=== PATIENT | male | born 1980 | race Hispanic/Latino ===

== ENCOUNTER 2019-01-26 20:40 | Emergency (ER) | payer MEDICARE ==
--- NOTE | 2019-01-26 20:56 | Emergency Department Report ---
Blank Doc - Documentation Documentation: This is a 38-year-old male that presents with abdominal pain and bilateral feet pain. Denies any n/v. Denies any other symptoms. This initial assessment/diagnostic orders/clinical plan/treatment(s) is/are subject to change based on patient's health status, clinical progression and re- assessment by fellow clinical providers in the ED. Further treatment and workup at subsequent clinical providers discretion. Patient/guardians urged not to elope from the ED as their condition may be serious if not clinically assessed and managed. Initial orders include: 1- Patient sent to [facility] for further evaluation and treatment 2- labs
[2019-01-26 21:33] LABS: Basophils % (Auto) 0.4 % (0.0-1.8); Eosinophils # (Auto) 0.2 K/mm3 (0.0-0.4); Eosinophils % (Auto) 1.6 % (0.0-4.3); Hematocrit 41.3 % (35.5-45.6); Hemoglobin 14.1 gm/dl (11.8-15.2); Lymphocytes # (Auto) 2.6 K/mm3 (1.2-5.4); Lymphocytes % (Auto) 26.3 % (13.4-35.0); Mean Corpuscular HGB Conc 34 % (32-34); Mean Corpuscular Volume 83 fl (84-94); Monocytes # (Auto) 0.4 K/mm3 (0.0-0.8); Monocytes % (Auto) 3.7 % (0.0-7.3); Platelet Count 292 K/mm3 (140-440); Red Blood Count 5.01 M/mm3 (3.65-5.03); Red Cell Distribution Width 14.8 % (13.2-15.2)
[2019-01-26 21:53] LABS: Alanine Aminotransferase 21 units/L (7-56); Albumin 3.6 g/dL (3.9-5); BUN/Creatinine Ratio 9; Blood Urea Nitrogen 6 mg/dL (9-20); Calcium 8.4 mg/dL (8.4-10.2); Hemolysis Index 5
[2019-01-26 21:55] LABS: Bilirubin,Direct < 0.2 mg/dL (0-0.2)
--- NOTE | 2019-01-26 22:59 | Emergency Department Report ---
ED Abdominal Pain HPI - General Chief Complaint: Abdominal Pain Stated Complaint: LEG/ABD PAIN Time Seen by Provider: 01/26/19 20:54 Source: patient Mode of arrival: Ambulatory Limitations: No Limitations - History of Present Illness Initial Comments: 38-year-old male presents to the ED with report of diffuse abdominal pain since last night. Patient denies fever, nausea, vomiting, diarrhea, constipation. Patient also reports bilateral foot pain. Patient is wearing [email or web address] boots, states he walks around a lot, and his boots hurt his feet. Patient states abdominal pain is currently resolved. Patient laying on stretcher comfortably. States he just needed a place to rest. MD Complaint: abdominal pain -: Last night Location: diffuse Radiation: none Migration to: no migration Severity: mild Severity scale (0 -10): 4 Consistency: now resolved Improves With: nothing Worsens With: nothing Associated Symptoms: denies other symptoms - Related Data Previous Rx's Medication Instructions Recorded Last Taken Type Dicyclomine [Bentyl] 20 mg PO QID PRN #20 tablet 01/26/19 Unknown Rx Allergies Allergy/AdvReac Type Severity Reaction Status Date / Time No Known Allergies Allergy Unverified 01/26/19 20:58 ED Review of Systems ROS: Stated complaint: LEG/ABD PAIN Other details as noted in HPI Comment: All other systems reviewed and negative Constitutional: denies: chills, fever Respiratory: denies: shortness of breath Cardiovascular: denies: chest pain Gastrointestinal: abdominal pain. denies: nausea, vomiting, diarrhea, constipation Musculoskeletal: other (reports pain to bilateral feet) ED Past Medical Hx - Past Medical History Previous Medical History?: No - Surgical History Past Surgical History?: Yes Additional Surgical History: Leg Surgery - Social History Smoking Status: Current Every Day Smoker Substance Use Type: Alcohol - Medications Home Medications: Home Medications Medication Instructions Recorded Confirmed Last Taken Type Dicyclomine [Bentyl] 20 mg PO QID PRN #20 tablet 01/26/19 Unknown Rx ED Physical Exam - General Limitations: No Limitations General appearance: other (appears unkempt) - Head Head exam: Present: atraumatic, normocephalic - Eye Eye exam: Present: normal appearance - ENT ENT exam: Present: mucous membranes moist - Neck Neck exam: Present: normal inspection - Respiratory Respiratory exam: Present: normal lung sounds bilaterally. Absent: respiratory distress - Cardiovascular Cardiovascular Exam: Present: regular rate, normal rhythm - GI/Abdominal GI/Abdominal exam: Present: soft. Absent: distended, tenderness, guarding, rebound - Extremities Exam Extremities exam: Present: normal inspection - Neurological Exam Neurological exam: Present: alert, oriented X3 - Psychiatric Psychiatric exam: Present: normal affect, normal mood - Skin Skin exam: Present: warm, dry, intact, normal color ED Course Vital Signs 01/26/19 01/26/19 01/26/19 20:48 20:54 23:46 Temperature 97.6 F 97.6 F Pulse Rate 100 H 92 H 80 Respiratory 18 18 16 Rate Blood Pressure 124/90 124/90 Blood Pressure 122/78 [Left] O2 Sat by Pulse 96 99 100 Oximetry ED Medical Decision Making - Lab Data Result diagrams: 01/26/19 21:20 01/26/19 21:20 - Medical Decision Making Benign abdomen. Vitals normal. Labs normal. Pt reports resolution of pain. Return precautions given, outpatient follow-up advised. - Differential Diagnosis gastritis, gastroenteritis, pancreatitis Critical care attestation.: If time is entered above; I have spent that time in minutes in the direct care of this critically ill patient, excluding procedure time. ED Disposition Clinical Impression: Abdominal pain Disposition: DC-01 TO HOME OR SELFCARE Is pt being admited?: No Condition: Stable Instructions: Abdominal Pain (ED) Prescriptions: Dicyclomine [Bentyl] 20 mg PO QID PRN #20 tablet PRN Reason: abdominal pain Referrals: [facility] [Provider Group] - 3-5 Days Time of Disposition: 22:59
[2019-01-26 23:55] VITALS: BP 122/78
== END 2019-01-26 23:46 | disposition home or self-care (01) ==
LOC: ED 20:40
DX: R10.84 Generalized abdominal pain (principal); M79.672 Pain in left foot; M79.671 Pain in right foot; F17.200 Nicotine dependence, unspecified, uncomplicated
CPT/HCPCS: 36415; 80048; 80076; 83690; 85025

== ENCOUNTER 2019-01-27 22:50 | Emergency (ER) | payer MEDICARE ==
[2019-01-28 06:54] VITALS: BP 108/66
--- NOTE | 2019-01-28 07:16 | Emergency Department Report ---
ED General Adult HPI - General Chief complaint: Pain General Stated complaint: PAIN/CANT SLEEP Time Seen by Provider: 01/28/19 06:53 Source: patient Mode of arrival: Ambulatory Limitations: No Limitations - History of Present Illness Initial comments: 38-year-old male presents to the emergency room for the second day in a row for generalized pain and can't sleep. Upon provider insulin patient's room patient is sleeping comfortably in a recliner. He was sent home yesterday with Bentyl 20 mg 4 times a day when necessary. -: days(s) (2) Severity scale (0 -10): 10 Consistency: intermittent - Related Data Previous Rx's Medication Instructions Recorded Last Taken Type Dicyclomine [Bentyl] 20 mg PO QID PRN #20 tablet 01/26/19 Unknown Rx Allergies Allergy/AdvReac Type Severity Reaction Status Date / Time No Known Allergies Allergy Unverified 01/26/19 20:58 ED Review of Systems ROS: Stated complaint: PAIN/CANT SLEEP Other details as noted in HPI Comment: All other systems reviewed and negative ED Past Medical Hx - Past Medical History Previous Medical History?: No - Surgical History Past Surgical History?: Yes Additional Surgical History: Leg Surgery - Social History Smoking Status: Current Every Day Smoker Substance Use Type: None - Medications Home Medications: Home Medications Medication Instructions Recorded Confirmed Last Taken Type Dicyclomine [Bentyl] 20 mg PO QID PRN #20 tablet 01/26/19 Unknown Rx ED Physical Exam - General Limitations: No Limitations General appearance: alert, in no apparent distress, other (very unkept) - Head Head exam: Present: atraumatic, normocephalic - Eye Eye exam: Present: normal appearance - ENT ENT exam: Present: mucous membranes moist - Cardiovascular Cardiovascular Exam: Present: regular rate, normal rhythm. Absent: systolic murmur, diastolic murmur, rubs, gallop - Extremities Exam Extremities exam: Present: normal inspection - Back Exam Back exam: Present: normal inspection - Neurological Exam Neurological exam: Present: alert, oriented X3 - Psychiatric Psychiatric exam: Present: normal affect, normal mood - Skin Skin exam: Present: warm, dry, intact, normal color. Absent: rash ED Course Vital Signs 01/27/19 01/28/19 23:47 06:53 Temperature 98 F 98.2 F Pulse Rate 104 H 84 Respiratory 18 20 Rate Blood Pressure 129/83 Blood Pressure 108/66 [Left] O2 Sat by Pulse 97 97 Oximetry Critical care attestation.: If time is entered above; I have spent that time in minutes in the direct care of this critically ill patient, excluding procedure time. ED Disposition Clinical Impression: Generalized pain Disposition: DC-01 TO HOME OR SELFCARE Is pt being admited?: No Does the pt Need Aspirin: No Condition: Stable Additional Instructions: Follow-up with a primary care provider I have listed one below for your convenience. Referrals: YUVAL BEATTY MD [Primary Care Provider] - 3-5 Days
== END 2019-01-28 07:29 | disposition home or self-care (01) ==
LOC: ED 22:50
DX: R52 Pain, unspecified (principal); F17.200 Nicotine dependence, unspecified, uncomplicated; Z98.890 Other specified postprocedural states

== ENCOUNTER 2019-01-28 16:38 | Emergency (ER) | payer MEDICARE ==
[2019-01-28 17:13] VITALS: BP 136/89
--- NOTE | 2019-01-28 19:05 | Emergency Department Report ---
ED General Adult HPI - General Chief complaint: Extremity Injury, Lower Stated complaint: FACE PAIN Time Seen by Provider: 01/28/19 18:55 Source: patient, RN notes reviewed, old records reviewed Mode of arrival: Ambulatory Limitations: No Limitations - History of Present Illness Initial comments: This is a 38-year-old gentleman who is not known to this provider previously, who presents to the emergency room today with complaint of nontraumatic plantar foot pain, most prominent on the left side. He reports the symptoms have started today. He is requesting an ointment. He denies other complaints, with the exception of headache. He is not able to describe exacerbating or relieving factors. Of note, patient was seen earlier on this morning, for other nonspecific symptoms. This is the patient's fourth visit to this department in the past few days. He was also seen by some of my colleagues for other multiple nonspecific complaints. He's had thorough evaluations, and thus far, has not had an objectively demonstrated emergent medical condition. The patient has made no complaints of homicidality or suicidality, nor does he appear to be psychotic. The patient appears to be undomiciled. -: This morning Location: left, right, lower extremity Consistency: other Improves with: other Worsens with: other - Related Data Previous Rx's Medication Instructions Recorded Last Taken Type Dicyclomine [Bentyl] 20 mg PO QID PRN #20 tablet 01/26/19 Unknown Rx Allergies Allergy/AdvReac Type Severity Reaction Status Date / Time No Known Allergies Allergy Verified 01/28/19 17:07 ED Review of Systems ROS: Stated complaint: FACE PAIN Other details as noted in HPI Constitutional: denies: fever Eyes: denies: eye discharge ENT: denies: congestion Respiratory: denies: cough Gastrointestinal: denies: abdominal pain Musculoskeletal: myalgia Neurological: headache ED Past Medical Hx - Past Medical History Previous Medical History?: No - Surgical History Additional Surgical History: Leg Surgery - Social History Smoking Status: Current Every Day Smoker Substance Use Type: None - Medications Home Medications: Home Medications Medication Instructions Recorded Confirmed Last Taken Type Dicyclomine [Bentyl] 20 mg PO QID PRN #20 tablet 01/26/19 Unknown Rx ED Physical Exam - General Limitations: No Limitations General appearance: alert, in no apparent distress - Head Head exam: Present: atraumatic, normocephalic - Eye Eye exam: Present: normal appearance, EOMI. Absent: nystagmus - ENT ENT exam: Present: normal exam, normal orophraynx, mucous membranes moist, normal external ear exam - Neck Neck exam: Present: normal inspection, full ROM. Absent: tenderness, meningismus - Respiratory Respiratory exam: Present: normal lung sounds bilaterally. Absent: respiratory distress - Cardiovascular Cardiovascular Exam: Present: regular rate, normal rhythm, normal heart sounds. Absent: bradycardia, tachycardia, irregular rhythm, systolic murmur, diastolic murmur, rubs, gallop - GI/Abdominal GI/Abdominal exam: Present: soft. Absent: distended, tenderness, guarding, rebound, rigid - Rectal Rectal exam: Present: deferred - Extremities Exam Extremities exam: Present: full ROM, other (2+ pulses noted in the bilateral upper, lower extremities. Compartments soft. No long bony tenderness. The pelvis is stable.). Absent: normal inspection (there is no redness, pus or streaking on the bilateral lower feet.The patient appears to have elongated to enails. The left foot appears to have pruney skin without evidence of active infection. No obvious fungal lesions are noted.) - Back Exam Back exam: Present: normal inspection, full ROM. Absent: tenderness, CVA tenderness (R), paraspinal tenderness, vertebral tenderness - Neurological Exam Neurological exam: Present: alert, other (there is no facial droop. The tongue is midline. Extraocular movements are intact bilaterally. There is 5 out of 5 strength in 4 extremities. Sensation is intact to light touch.). Absent: motor sensory deficit - Psychiatric Psychiatric exam: Present: flat affect - Skin Skin exam: Present: warm, dry, intact, normal color. Absent: rash ED Course Vital Signs 01/28/19 17:12 Temperature 98.2 F Pulse Rate 88 Respiratory 18 Rate Blood Pressure 136/89 O2 Sat by Pulse 98 Oximetry - Reevaluation(s) Reevaluation #1: 01/28/19 19:12 Differential diagnosis, including without Limited to: Homelessness, nonspecific plantar foot pain, water immersion wrinkling Assessment and plan: 38-year-old gentleman with foot pain, that appears to be chronic, he has been ambulatory on multiple evaluations, with bilateral foot pain, greater on the left foot, likely secondary to water immersion wrinkling. No evidence of active infectious process at this time. Physical examination otherwise unremarkable. The patient does not appear to have an emergent medical condition at this time. He is counseled to engage in appropriate foot hygiene, including washing with soap and water at least once per day, cutting his nails on his feet on a regular basis, and he will be provided with dry socks. Unfortunately, we do not have the ability to provide dry footwear. The patient is medically suitable for discharge at this point in time. Critical care attestation.: If time is entered above; I have spent that time in minutes in the direct care of this critically ill patient, excluding procedure time. ED Disposition Clinical Impression: Foot pain Disposition: DC-01 TO HOME OR SELFCARE Is pt being admited?: No Does the pt Need Aspirin: No Condition: Stable Additional Instructions: I recommend that the patient wash feet with gentle soap and water at least once every 24 hours. Patient should cut nails on the toes on a regular basis to avoid overgrowth. Used to dry socks that were provided to the patient, and obtain dry footwear, which is wide-based, and allows plenty breathing room. Take acetaminophen, or ibuprofen [id number] as needed for pain. Follow-up with the primary care doctor within the next month. Return to the emergency room right away with it, worsened or different symptoms. Referrals: KERVIN BARAJAS DPM [Staff Physician] - 3-5 Days [facility] [Provider Group] - 3-5 Days
== END 2019-01-28 19:20 | disposition home or self-care (01) ==
LOC: ED 16:38
DX: M79.672 Pain in left foot (principal); M79.10 Myalgia, unspecified site; F17.200 Nicotine dependence, unspecified, uncomplicated
CPT/HCPCS: 99283

== ENCOUNTER 2019-02-01 20:12 | Emergency (ER) | payer MEDICARE ==
[2019-02-01 21:03] VITALS: BP 136/85
[2019-02-01] MEDS ORDERED: TYLENOL PO ONE (23:40)
--- NOTE | 2019-02-02 00:04 | Emergency Department Report ---
ED Extremity Problem HPI - General Chief complaint: Extremity Problem,Nontraumatic Stated complaint: LEG PAIN Time Seen by Provider: 02/01/19 23:20 Source: patient Mode of arrival: Ambulatory Limitations: No Limitations - History of Present Illness Initial comments: Patient is a 38-year-old white male with history of chronic pain who presents to the ED with complaint of worsening chronic bilateral foot pain for the last 2 weeks, worse in the last 2 days. Patient states that he is on his feet most of the day since he has no place to leave. Patient denies traumatic injury, fall, numbness and tingling of lower extremities bilaterally, dizziness, chest pain, shortness of breath, back pain, abdominal pain, head injury or headache, hematuria, dysuria, urinary frequency and urgency and headache. MD Complaint: extremity pain (extremities bilateral foot pain), joint paint -: Gradual, month(s) (12) Location: bilateral lower extremity (bilateral foot pain) History of Same: Yes -: Yes myalgia, Yes arthralgia Radiation: none Severity scale (0 -10): 7 Quality: burning, aching, sharp Consistency: constant Improves with: rest Worsens with: weight bearing, walking, exertion, palpation Associated Symptoms: denies other symptoms, myalgias, arthralgias. denies: chest pain, shortness of breath, fever, rash - Related Data Previous Rx's Medication Instructions Recorded Last Taken Type Dicyclomine [Bentyl] 20 mg PO QID PRN #20 tablet 01/26/19 Unknown Rx Cyclobenzaprine HCl [Flexeril 5 MG 5 mg PO TID #15 tab 02/02/19 Unknown Rx TAB] Ibuprofen [Motrin] 600 mg PO Q8H PRN #15 tablet 02/02/19 Unknown Rx Allergies Allergy/AdvReac Type Severity Reaction Status Date / Time No Known Allergies Allergy Verified 01/28/19 17:07 ED Review of Systems ROS: Stated complaint: LEG PAIN Other details as noted in HPI Comment: All other systems reviewed and negative Constitutional: no symptoms reported, see HPI Eyes: as per HPI ENT: as per HPI Respiratory: no symptoms reported, see HPI. denies: shortness of breath, SOB with exertion Cardiovascular: as per HPI. denies: chest pain, palpitations, dyspnea on exertion, syncope Endocrine: no symptoms reported, see HPI Gastrointestinal: as per HPI. denies: abdominal pain, nausea, vomiting, diarrhea Genitourinary: as per HPI Musculoskeletal: arthralgia, other (bilateral foot pain) Skin: as per HPI. denies: rash, lesions Neurological: as per HPI Psychiatric: as per HPI. denies: auditory hallucinations, visual hallucinations, suicidal thoughts Hematological/Lymphatic: as per HPI ED Past Medical Hx - Past Medical History Previous Medical History?: Yes Additional medical history: Chronic joint pains - Surgical History Past Surgical History?: Yes Additional Surgical History: Leg Surgery - Social History Smoking Status: Current Every Day Smoker Substance Use Type: None - Medications Home Medications: Home Medications Medication Instructions Recorded Confirmed Last Taken Type Dicyclomine [Bentyl] 20 mg PO QID PRN #20 tablet 01/26/19 Unknown Rx Cyclobenzaprine HCl [Flexeril 5 MG 5 mg PO TID #15 tab 02/02/19 Unknown Rx TAB] Ibuprofen [Motrin] 600 mg PO Q8H PRN #15 tablet 02/02/19 Unknown Rx ED Physical Exam - General Limitations: No Limitations General appearance: alert, in no apparent distress - Head Head exam: Present: atraumatic, normocephalic, normal inspection - Eye Eye exam: Present: normal appearance, PERRL, EOMI Pupils: Present: normal accommodation - ENT ENT exam: Present: normal exam, normal orophraynx, mucous membranes moist, TM's normal bilaterally, normal external ear exam - Neck Neck exam: Present: normal inspection, full ROM - Respiratory Respiratory exam: Present: normal lung sounds bilaterally. Absent: respiratory distress, wheezes, chest wall tenderness - Cardiovascular Cardiovascular Exam: Present: regular rate, normal rhythm, normal heart sounds - GI/Abdominal GI/Abdominal exam: Present: soft, normal bowel sounds. Absent: tenderness - Rectal Rectal exam: Present: deferred - Extremities Exam Extremities exam: Present: normal inspection, full ROM, normal capillary refill - Expanded Lower Extremity Exam Right Foot/Toe exam: Present: normal inspection, tenderness Left Foot/Toe exam: Present: normal inspection, tenderness - Back Exam Back exam: Present: normal inspection, tenderness - Neurological Exam Neurological exam: Present: alert, oriented X3, CN II-XII intact, normal gait, reflexes normal - Psychiatric Psychiatric exam: Present: normal affect - Skin Skin exam: Present: warm, dry, intact, normal color. Absent: rash ED Course Vital Signs 02/01/19 21:01 Temperature 97.8 F Pulse Rate 98 H Respiratory 18 Rate Blood Pressure 136/85 O2 Sat by Pulse 98 Oximetry ED Medical Decision Making - Medical Decision Making Patient is alert and oriented 3 and is not in distress. Patient presented to the ED with complaint of worsening chronic bilateral foot pain which she admits is from walking a lot. Patient was treated for pain in the ED. On reevaluation, patient sleeping deeply in the ED room in no acute distress, and refuses to answer questions. Patient is hemodynamically stable and was discharged home and advised to take [id number] Tylenol or ibuprofen for pain as needed with food. Patient advised to follow-up with his primary care physician or return to the ED immediately if symptoms get worse. - Differential Diagnosis chronic osteoarthritis; muscle strains; muscle spasms Critical care attestation.: If time is entered above; I have spent that time in minutes in the direct care of this critically ill patient, excluding procedure time. ED Disposition Clinical Impression: Generalized pain Foot pain Qualifiers: Laterality: bilateral Qualified Code(s): M79.671 - Pain in right foot; M79.672 - Pain in left foot Chronic pain Qualifiers: Chronic pain type: other chronic pain Qualified Code(s): G89.29 - Other chronic pain Disposition: - TO HOME OR SELFCARE Is pt being admited?: No Does the pt Need Aspirin: No Condition: Stable Instructions: Chronic Pain (ED), Muscle Spasm (ED), Osteoarthritis (ED), Arthralgia (ED) Additional Instructions: Take medications with food, drink plenty of fluids and follow up with your primary care physician in 7-10 days as advised. Return to the ED immediately if symptoms get worse. Prescriptions: Cyclobenzaprine HCl [Flexeril 5 MG TAB] 5 mg PO TID #15 tab Ibuprofen [Motrin] 600 mg PO Q8H PRN #15 tablet PRN Reason: Pain Referrals: YUVAL BEATTY MD [Primary Care Provider] - 3-5 Days Time of Disposition: 00:11 Print Language: LAO
== END 2019-02-02 00:27 | disposition home or self-care (01) ==
LOC: ED 20:12
DX: M79.671 Pain in right foot (principal); M79.672 Pain in left foot; G89.29 Other chronic pain; F17.200 Nicotine dependence, unspecified, uncomplicated
CPT/HCPCS: 99282

== ENCOUNTER 2019-02-07 14:50 | Emergency (ER) | payer MEDICARE | END 2019-02-07 15:52 | LOC: ED 14:50 | DX: M79.606 Pain in leg, unspecified (principal); Z53.21 Procedure and treatment not carried out due to patient leaving prior to being seen by health care provider ==

== ENCOUNTER 2019-08-01 16:22 | Emergency (ER) | payer MEDICAID, MEDICARE ==
[2019-08-01 16:40] VITALS: BP 127/81
[2019-08-01 18:18] LABS: Amphetamine Screen,Urine PRESUMPTIVE NEGATIVE; Benzodiazepines Screen,Urine PRESUMPTIVE NEGATIVE; Cannabinoid Screen,Urine PRESUMPTIVE NEGATIVE; Cocaine Screen,Urine PRESUMPTIVE NEGATIVE; Methadone Screen,Urine PRESUMPTIVE NEGATIVE; Opiate Screen,Urine PRESUMPTIVE NEGATIVE
[2019-08-01 18:27] LABS: Bilirubin,Urine NEG (Negative); Blood,Urine NEG (Negative); Color,Urine Colorless (Yellow); Protein,Urine <15 mg/dL mg/dL (Negative); RBC,Urine < 1.0 /HPF (0.0-6.0); Urobilinogen,Urine < 2.0 mg/dL (<2.0); WBC,Urine < 1.0 /HPF (0.0-6.0)
[2019-08-01 18:46] LABS: Basophils % (Auto) 0.5 % (0.0-1.8); Eosinophils # (Auto) 0.1 K/mm3 (0.0-0.4); Eosinophils % (Auto) 1.7 % (0.0-4.3); Hematocrit 44.5 % (35.5-45.6); Hemoglobin 14.5 gm/dl (11.8-15.2); Lymphocytes # (Auto) 2.8 K/mm3 (1.2-5.4); Lymphocytes % (Auto) 35.1 % (13.4-35.0); Mean Corpuscular HGB Conc 33 % (32-34); Mean Corpuscular Volume 83 fl (84-94); Monocytes # (Auto) 0.5 K/mm3 (0.0-0.8); Monocytes % (Auto) 6.1 % (0.0-7.3); Platelet Count 304 K/mm3 (140-440); Red Blood Count 5.35 M/mm3 (3.65-5.03)
[2019-08-01 19:06] LABS: BUN/Creatinine Ratio 9; Blood Urea Nitrogen 6 mg/dL (9-20); Calcium 8.8 mg/dL (8.4-10.2); Hemolysis Index 10
--- NOTE | 2019-08-01 19:26 | Emergency Department Report ---
ED General Adult HPI - General Chief complaint: Psych Stated complaint: ABUSIVE/ERATIC BEHAVIOR Time Seen by Provider: 08/01/19 18:03 Source: patient, family Mode of arrival: Ambulatory Limitations: No Limitations - History of Present Illness Initial comments: The patient [place] the emergency department [place] [facility] for aggressive behavior. There was also a complaint that the patient was exposing himself but the patient states that he had a rash and was pulling down his pants to take a look at the rash. She denies wanting to kill himself or harm others and also denies auditory or visual hallucinations. - Related Data Previous Rx's Medication Instructions Recorded Last Taken Type Dicyclomine [Bentyl] 20 mg PO QID PRN #20 tablet 01/26/19 Unknown Rx Cyclobenzaprine HCl [Flexeril 5 MG 5 mg PO TID #15 tab 02/02/19 Unknown Rx TAB] Ibuprofen [Motrin] 600 mg PO Q8H PRN #15 tablet 02/02/19 Unknown Rx Allergies Allergy/AdvReac Type Severity Reaction Status Date / Time No Known Allergies Allergy Verified 02/07/19 16:13 ED Review of Systems ROS: Stated complaint: ABUSIVE/ERATIC BEHAVIOR Other details as noted in HPI Comment: All other systems reviewed and negative Constitutional: denies: chills, fever Eyes: denies: eye pain, eye discharge, vision change ENT: denies: ear pain, throat pain Respiratory: denies: cough, shortness of breath, wheezing Cardiovascular: denies: chest pain, palpitations Endocrine: no symptoms reported Gastrointestinal: denies: abdominal pain, nausea, diarrhea Genitourinary: denies: urgency, dysuria Musculoskeletal: denies: back pain, joint swelling, arthralgia Skin: denies: rash, lesions Neurological: denies: headache, weakness, paresthesias Psychiatric: denies: anxiety, depression Hematological/Lymphatic: denies: easy bleeding, easy bruising ED Past Medical Hx - Past Medical History Additional medical history: Chronic joint pains - Surgical History Additional Surgical History: Leg Surgery - Social History Smoking Status: Current Every Day Smoker Substance Use Type: None - Medications Home Medications: Home Medications Medication Instructions Recorded Confirmed Last Taken Type Dicyclomine [Bentyl] 20 mg PO QID PRN #20 tablet 01/26/19 Unknown Rx Cyclobenzaprine HCl [Flexeril 5 MG 5 mg PO TID #15 tab 02/02/19 Unknown Rx TAB] Ibuprofen [Motrin] 600 mg PO Q8H PRN #15 tablet 02/02/19 Unknown Rx ED Physical Exam - General Limitations: No Limitations General appearance: alert, in no apparent distress - Head Head exam: Present: atraumatic, normocephalic - Eye Eye exam: Present: normal appearance, PERRL, EOMI - ENT ENT exam: Present: mucous membranes moist - Neck Neck exam: Present: normal inspection - Respiratory Respiratory exam: Present: normal lung sounds bilaterally. Absent: respiratory distress - Cardiovascular Cardiovascular Exam: Present: regular rate, normal rhythm. Absent: systolic murmur, diastolic murmur, rubs, gallop - GI/Abdominal GI/Abdominal exam: Present: soft, normal bowel sounds. Absent: distended, tenderness - Rectal Rectal exam: Present: deferred - Extremities Exam Extremities exam: Present: normal inspection - Back Exam Back exam: Present: normal inspection - Neurological Exam Neurological exam: Present: alert, oriented X3, CN II-XII intact. Absent: motor sensory deficit - Psychiatric Psychiatric exam: Present: normal affect, normal mood - Skin Skin exam: Present: warm, dry, intact, normal color. Absent: rash ED Course Vital Signs 08/01/19 16:26 Temperature 98.3 F Pulse Rate 86 Respiratory 20 Rate Blood Pressure 127/81 O2 Sat by Pulse 100 Oximetry ED Medical Decision Making - Lab Data Result diagrams: 08/01/19 18:16 08/01/19 18:16 Critical care attestation.: If time is entered above; I have spent that time in minutes in the direct care of this critically ill patient, excluding procedure time. ED Disposition Clinical Impression: Agitation Disposition: DC-01 TO HOME OR SELFCARE Is pt being admited?: No Does the pt Need Aspirin: No Condition: Stable Instructions: Conduct Disorder (ED) Additional Instructions: return if worse Referrals: [facility] [Outside] - 3-5 Days Time of Disposition: 19:25
== END 2019-08-01 20:15 | disposition home or self-care (01) ==
LOC: ED 16:22
DX: R45.1 Restlessness and agitation (principal); F17.200 Nicotine dependence, unspecified, uncomplicated; Z79.899 Other long term (current) drug therapy
CPT/HCPCS: 36415; 80048; 80307; 80320; 81001; 85025; 99283; G0480